=== PATIENT | female | born 1990 ===

== ENCOUNTER 2018-03-18 19:19 | Emergency (ER) | payer SELFPAY ==
[~2018-03-18] VITALS: Ht 152.4 cm; Wt 45.4 kg
--- OUTSIDE RECORDS SUMMARY | 2018-03-18 19:24 | XMS REPORT ---
Author Author JOSE MARIA Starr [facility] Address Unknown Care Team Providers Care Customs Entry Clerk Name Role Phone JOSE MARIA Starr Unavailable PROBLEMS Type Condition ICD9-CM Code [id number] Code Onset Dates Condition Status SNOMED Code Problem Dysmenorrhea N94.6 Active 375535600 Problem Endometrial thickening on ultra sound R93.8 Active 720092022 Problem Dysuria R30.0 Active 71087868 Problem Vaginal discharge N89.8 Active 530961804 Problem Routine health maintenance Z00.00 Active 761202887 Problem Hemoptysis R04.2 Active 05004608 ALLERGIES Substance Reaction Event Type Date Status N.K.D.A. Unknown Non Drug Allergy Aug, Unknown SOCIAL HISTORY No smoking Hx information available PLAN OF CARE Activity Details Follow Up 1 Week Reason:TE VITAL SIGNS Height 59 in 2016-08-25 Blood pressure systolic 102 mmHg 2016-08-25 Blood pressure diastolic 57 mmHg 2016-08-25 MEDICATIONS Medication Instructions Dosage Frequency Start Date End Date Duration Status Amoxicillin 500 MG Orally 4 times a day 1 capsule 6h Aug, Aug, 7 days Active [place] 5-325 MG Orally every 6 hrs 1 tablet as needed 6h Aug,Aug 4 days Active RESULTS No Results PROCEDURES Procedure Date Ordered Related Diagnosis Body Site LTD ORAL EVALUATION - PROBLEM FOCUS Aug 25, 2016 PANORAMIC FILM SEE ALSO CODE 90815 Aug 25, 2016 IMMUNIZATIONS No Known Immunizations
--- OUTSIDE RECORDS SUMMARY | 2018-03-18 19:24 | XMS REPORT ---
Author Author EBRT BRYAN Organization [facility] Address [address] [place] [address] Care Team Providers Care Client Care Consultant Name Role Phone BRYAN NOEL Unavailable PROBLEMS Type Condition ICD9-CM Code [id number] Code Onset Dates Condition Status SNOMED Code Assessment Pelvic pain R10.2 Apr, Active 97990264 Problem Routine health maintenance Z00.00 Active 175957701 Problem Dysuria R30.0 Active 98988087 Assessment Routine health maintenance Z00.00 Apr, Active 082235737 Assessment Screening for tuberculosis Z11.1 Apr, Active 176489202 Problem Vaginal discharge N89.8 Active 317162701 Problem Hemoptysis R04.2 Active 06782715 ALLERGIES Substance Reaction Event Type Date Status N.K.D.A. Unknown Non Drug Allergy Apr, Unknown SOCIAL HISTORY No smoking Hx information available PLAN OF CARE VITAL SIGNS Height 59 in 2016-04-29 Weight 106.7 lbs 2016-04-29 Heart Rate 68 bpm 2016-04-29 Respiratory Rate 18 2016-04-29 BMI 21.55 kg/m2 2016-04-29 Blood pressure systolic 104 mmHg 2016-04-29 Blood pressure diastolic 68 mmHg 2016-04-29 MEDICATIONS Medication Instructions Dosage Frequency Start Date End Date Duration Status Azithromycin 250 MG Orally Once a day 2 tablets on the first day, then 1 tablet daily for 4 days 24h Apr, Apr, 5 day(s) Active RESULTS Name Result Date Reference Range THYROID ANALYZER 2016-04-29 TSH 6.130 0.450-4.500 T4,Free (Direct) 1.26 0.82-1.77 Thyroid Peroxidase (TPO) Ab 17 0-34 Interpretive Comment A1C 2016-04-29 Hemoglobin A1c 5.5 4.8-5.6 CBC 2016-04-29 WBC 7.1 3.4-10.8 RBC 4.40 3.77-5.28 Hemoglobin 12.3 11.1-15.9 Hematocrit 38.1 34.0-46.6 MCV 87 79-97 MCH 28.0 26.6-33.0 MCHC 32.3 31.5-35.7 RDW 13.2 12.3-15.4 Platelets 263 150-379 Neutrophils 43 Lymphs 41 Monocytes 8 Eos 8 Basos 0 Neutrophils (Absolute) 3.0 1.4-7.0 Lymphs (Absolute) 2.9 0.7-3.1 Monocytes(Absolute) 0.6 0.1-0.9 Eos (Absolute) 0.6 0.0-0.4 Baso (Absolute) 0.0 0.0-0.2 Immature Granulocytes 0 Immature Grans (Abs) 0.0 0.0-0.1 CULTURE, GENITAL 2016-04-29 Genital Culture, Routine Final report Result 1 CULTURE, URINE 2016-04-29 Urine Culture, Routine Final report Result 1 LIPID PANEL 2016-04-29 Cholesterol, Total 163 100-199 Triglycerides 70 0-149 HDL Cholesterol 43 >39 VLDL Cholesterol [place] 14 5-40 LDL Cholesterol Calc 106 0-99 CMP 2016-04-29 Glucose, Serum 84 65-99 BUN 8 6-20 Creatinine, Serum 0.72 0.57-1.00 eGFR If NonAfricn Am 115 >59 eGFR If Africn Am 133 >59 BUN/Creatinine Ratio 11 8-20 Sodium, Serum 139 134-144 Potassium, Serum 3.8 3.5-5.2 Chloride, Serum 100 97-108 Carbon Dioxide, Total 21 18-29 Calcium, Serum 9.4 8.7-10.2 Protein, Total, Serum 7.5 6.0-8.5 Albumin, Serum 4.4 3.5-5.5 Globulin, Total 3.1 1.5-4.5 A/G Ratio 1.4 1.1-2.5 Bilirubin, Total 0.6 0.0-1.2 Alkaline Phosphatase, S 101 39-117 AST (SGOT) 28 0-40 ALT (SGPT) 20 0-32 TEST, URINE (IN HOUSE) 2016-04-29 RESULTS negative Lot # [id number] Control + Exp date TRICHOMONAS (IN HOUSE) 2016-04-29 TRICHOMONAS negative Control + Lot # [id number] Exp date 04/2017 UA W/CULTURE IF INDICATED (IN HOUSE) 2016-04-29 Lot # [id number] Exp date 2016-12 Clarity slightly cloudy Color dark yellow Odor n/a GLU negative ASIF negative KET negative SG >=1.030 BLO 3+ pH 5.5 Protein trace URO 0.2 NIT negative JANETTE trace Lot # Exp date BACTERIAL VAGINOSIS (IN HOUSE) 2016-04-29 RESULTS negative Control + Lot # [id number] Exp date GC/CHLAM PROBE (STATE) 2016-04-29 CHLAMYDIA GC Ultrasound : Pelvic, COMPLETE (REFLEX CPT-22578) 2016-05-20 Xray : Chest (IN HOUSE) 2016-05-29 PROCEDURES Procedure Date Ordered Related Diagnosis Body Site GLYCATED HEMOGLOBIN TEST Apr 29, 2016 COMPLETE CBC W/AUTO DIFF WBC Apr 29, 2016 COMPREHEN METABOLIC PANEL Apr 29, 2016 CULTURE, BACTERIA, OTHER Apr 29, 2016 No Charge Apr 29, 2016 MCDANIELS VAG, DNA, DIR PROBE Apr 29, 2016 TRICHOMONAS ASSAY W/OPTIC Apr 29, 2016 LIPID PANEL Apr 29, 2016 ASSAY THYROID STIM HORMONE Apr 29, 2016 URINALYSIS, AUTO, W/O SCOPE Apr 29, 2016 CHEST X-RAY Apr 29, 2016 URINE TEST Apr 29, 2016 URINE CULTURE/COLONY COUNT Apr 29, 2016 TB INTRADERMAL TEST Apr 29, 2016 VENIPUNCT, ROUTINE* Apr 29, 2016 Office Visit, Est Pt., Level 4 Apr 29, 2016 IMMUNIZATIONS No Known Immunizations
--- OUTSIDE RECORDS SUMMARY | 2018-03-18 19:24 | XMS REPORT ---
Author Author MARYANNE SAINZ [facility] eClinical[employer] Address Unknown Phone Unavailable Care Team Providers Care Agent Contract Clerk Name Role Phone MARYANNE SAINZ CP Unavailable Allergies, Adverse Reactions, Alerts Substance Reaction Event Type N.K.D.A. Info Not Available Non Drug Allergy Problems Problem Type Condition Code Onset Dates Condition Status Assessment Vaginal discharge N89.8 Active Assessment Cervical motion tenderness N94.9 Active Assessment Dysuria R30.0 Active Medications Medication Code System Code Instructions Start Date End Date Status Dosage Doxycycline Hyclate [facility] [address]-55 100 MG Orally every 12 hrs Apr 15, 2016 Apr 22, 2016 1 capsule Procedures Procedure Coding System Code Date TRICHOMONAS ASSAY W/OPTIC CPT-4 09331 Apr 15, 2016 No Charge CPT-4 01721 Apr 15, 2016 URINALYSIS, AUTO, W/O SCOPE CPT-4 20869 Apr 15, 2016 URINALYSIS, AUTO W/SCOPE CPT-4 02109 Apr 15, 2016 CULTURE, BACTERIA, OTHER CPT-4 86737 Apr 15, 2016 MCDANIELS VAG, DNA, DIR PROBE CPT-4 24911 Apr 15, 2016 SPECIMEN HANDLING CPT-4 17887 Apr 15, 2016 Office Visit, New Pt., Level 3 CPT-4 20471 Apr 15, 2016 Vital Signs Date/Time: Apr 15, 2016 Cardiac Monitoring Heart Rate 60 bpm Weight 109.2 lbs Height 59 in BMI 22.05 Index Blood Pressure Diastolic 70 mmHg Blood Pressure Systolic 96 mmHg Results No Known Results Summary Purpose eClinicalWorks Submission
--- OUTSIDE RECORDS SUMMARY | 2018-03-18 19:24 | XMS REPORT ---
Author JEROD Dawkins [facility] e[employer] Address Unknown Phone Unavailable Care Team Providers Care Nozzle Cement Sprayer Helper Name Role Phone JEROD REN CP Unavailable Allergies, Adverse Reactions, Alerts Substance Reaction Event Type N.K.D.A. Info Not Available Non Drug Allergy Problems Problem Type Condition Code Onset Dates Condition Status Assessment Endometrial thickening on ultra sound R93.8 Active Problem Endometrial thickening on ultra sound R93.8 Active Problem Routine health maintenance Z00.00 Active Problem Dysmenorrhea N94.6 Active Problem Hemoptysis R04.2 Active Assessment Dysmenorrhea N94.6 Active Problem Dysuria R30.0 Active Problem Vaginal discharge N89.8 Active Medications Medication Code System Code Instructions Start Date End Date Status Dosage Ortho-Cyclen (28) [facility] [address]-04 0.25-35 MG-MCG Orally Once a day May 1 tablet Procedures Procedure Coding System Code Date Office Visit, Est Pt., Level 4 CPT-4 39045 Jun 02, 2016 URINE TEST CPT-4 21122 Jun 02, 2016 Vital Signs Date/Time: Jun 02, 2016 Cardiac Monitoring Heart Rate 88 bpm Weight 106.0 lbs Height 59 in BMI 21.41 Index Blood Pressure Diastolic 60 mmHg Blood Pressure Systolic 100 mmHg Results No Known Results Summary Purpose eClinicalWorks Submission
--- OUTSIDE RECORDS SUMMARY | 2018-03-18 19:24 | XMS REPORT ---
Author Author BRYAN NOEL Organization [facility] Address [address] [place] [address] Care Team Providers Care Energy Director Name Role Phone BRYAN NOEL Unavailable PROBLEMS Type Condition ICD9-CM Code [id number] Code Onset Dates Condition Status SNOMED Code Problem Routine health maintenance Z00.00 Active 306854697 Problem Dysuria R30.0 Active 89995925 Assessment Abnormal TSH R79.89 08 Apr, 2016 Active 196191725 Problem Vaginal discharge N89.8 Active 967870863 Problem Hemoptysis R04.2 Active 64548681 ALLERGIES No Known Allergies SOCIAL HISTORY No smoking Hx information available PLAN OF CARE VITAL SIGNS MEDICATIONS No Known Medications RESULTS No Results PROCEDURES No Known procedures IMMUNIZATIONS No Known Immunizations
--- NOTE | 2018-03-18 20:23 | ED General ---
General Chief Complaint: General Problems/Pain Stated Complaint: NAUSEA;DIZZINESS;FACE NUMBNESS Nursing Triage Note: PATIENT HERE FOR COMPLAINTS OF SUDDEN HEADACHE, NAUSEA, LIGHHEADEDNESS AND RIGHT SIDED FACIAL NUMBNESS TODAY AROUND 4PM. SHE STATES THAT SHE HAD THIS SAME THING 3 MONTHS AGO AND WAS SEEN AT [facility] FOR IT AND THEY "SAID IT WAS NOTHING." TODAY SHE TOOK SOME TYLENOL AND RESTED FOR A WHILE AND THIS HELPED BUT SHE SAYS IT IS NOT COMPLETELY BETTER. Nursing Sepsis Screen: No Definite Risk History of Present Illness Date Seen by Provider: Mar 18, 2018 Time Seen by Provider: 19:45 Initial Comments 27-year-old female presents for right-sided facial numbness associated with headaches. She reports her symptoms occurred one other time approximately 2 -3 weeks ago. Today when it began she took Tylenol and laid down, her symptoms then improved. She has no history of migraines or other neurological problems. She's had no previous eye exam. She does not take any medications routinely and denies any allergies. She is sexually active and only takes her control after intercourse, patient education provided that she needs to take this on a daily basis as prescribed. Urine hCG negative. Timing/Duration: 1-3 Hours Severity: Mild Associated Systoms: Denies Symptoms Allergies and Home Medications Patient Home Medication List Home Medication List Reviewed: Yes Review of Systems Constitutional: no symptoms reported, see HPI Psychiatric/Neurological: See HPI, Headache, Numbness All Other Systems Reviewed Negative Unless Noted: Yes Past Zhokgcj-Hsnvlk-Jkjivg Hx Past Med/Social Hx: Reviewed Nursing Past Med/Soc Hx Patient Social History Alcohol Use: Denies Use Recreational Drug Use: No Smoking Status: Never a Smoker 2nd Hand Smoke Exposure: No Recent Foreign Travel: No Contact w/Someone Who Travel: No Recent Infectious Disease Expo: No Recent Hopitalizations: No Physical Abuse: No Sexual Abuse: No Seasonal Allergies Seasonal Allergies: No Past Medical History Surgeries: No Respiratory: No Cardiac: No Neurological: No Last Menstrual Period: Mar 08, 2018 Genitourinary: No Gastrointestinal: No Musculoskeletal: No Endocrine: No HEENT: No Cancer: No Psychosocial: No Nursing Suicide Risk Score: 0 Integumentary: No Blood Disorders: No Physical Exam Vital Signs Vital Signs - First Documented 03/18/18 19:38 Temp 96.9 Pulse 82 Resp 18 B/P (MAP) 128/84 (99) Pulse Ox 100 Capillary Refill : Less Than 3 Seconds Height, Weight, BMI Height: 5'0" Weight: 100lbs. 0oz. 45.721141rm; BMI Method:Stated General Appearance: No Apparent Distress, WD/WN Eyes: Bilateral Eye Normal Inspection, Bilateral Eye PERRL, Bilateral Eye EOMI HEENT: PERRL/EOMI, TMs Normal, Normal ENT Inspection, Pharynx Normal Neck: Full Range of Motion, Normal Inspection, Non Tender, Supple Respiratory: Chest Non Tender, Lungs Clear, Normal Breath Sounds Cardiovascular: Regular Rate, Rhythm, Normal Peripheral Pulses Gastrointestinal: Normal Bowel Sounds, Non Tender, Soft Extremity: Normal Capillary Refill, Normal Inspection, Normal Range of Motion, Non Tender, No Pedal Edema Neurologic/Psychiatric: Alert, Oriented x3, No Motor/Sensory Deficits, Normal Mood/Affect, litigation associate II-XII Norm as Tested (grossly intact) Skin: Normal Color, Warm/Dry Progress/Results/Core Measures Suspected Sepsis Recent Fever Within 48 Hours: No Infection Criteria Present: None New/Unexplained Altered Menta: No Sepsis Screen: No Definite Risk SIRS Temperature:96.9 Pulse: 82 Respiratory Rate: 18 Blood Pressure 128 /84 Mean: 99 Results/Orders Vital Signs/I&O 03/18/18 03/18/18 19:38 20:26 Temp 96.9 96.9 Pulse 82 82 Resp 18 18 B/P (MAP) 128/84 (99) 128/84 (99) Pulse Ox 100 100 Capillary Refill : Less Than 3 Seconds Blood Pressure Mean: 99 Departure Impression Primary Impression: Cluster headache Qualified Codes: G44.011 - Episodic cluster headache, intractable Disposition: 01 HOME, SELF-CARE Condition: Stable Departure-Patient Inst. Decision time for Depature: 20:15 Referrals: JEROD REN DO (PCP) Primary Care Physician BRYAN NOEL APRN (Family) Primary Care Physician Patient Instructions: Cluster Headache (DC) Add. Discharge Instructions: Take Excedrin Migraine at immediate onset of headache, with full glass of water and rest. Schedule appt with eye doctor for vision exam. Start taking a daily women's multi-vitamin. Take your control, every day, at the same time. Follow up with [facility] for continued symptoms or worsening. Return to Emergency Dept for new problems or concerns. All discharge instructions reviewed with patient and/or family. Voiced understanding. DAI PAREDES 26, 2018 20:23
[2018-03-18 20:26] VITALS: BP 128/84
== END 2018-03-18 20:35 | disposition home or self-care (01) ==
LOC: EDUNIT# 19:19 → ER 19:21
DX: G44.011 Episodic cluster headache, intractable (principal)
CPT/HCPCS: 99281

== ENCOUNTER → 2018-05-10 | Outpatient (CLI) | payer SELFPAY ==
[~2018-05-10] MED LIST: CATHETER FLUSH 10 ML SYR IV PRN; IOHEXOL 350 MG/ML 100 ML (OMNIPAQUE 350) VIAL IV ONE; NS 250 ML (IVPB) BAG IV ONE; RECEIVED CONTRAST (Hold Metformin) IV SCH
--- NOTE | 2018-05-10 10:55 | Diagnostic Imaging Report ---
PROCEDURE: CT abdomen and pelvis with contrast. TECHNIQUE: Multiple contiguous axial images were obtained through the abdomen and pelvis after administration of intravenous contrast. INDICATION: Abdominal pain. COMPARISON: None. FINDINGS: Included portions of lung bases are clear. CT abdomen: Normal appendix is identified. Small bowel loops are nondistended. There is large amount of air and stool scattered throughout the colon. The kidneys, adrenal glands, spleen, pancreas, and liver have a normal CT appearance. There is no loculated fluid collection, free fluid, nor free air within the abdomen. No abnormal mesenteric or retroperitoneal adenopathy is seen. Bony structures show no acute abnormalities. CT Pelvis: Urinary bladder is unopacified. No calculi are seen within urinary bladder. There is no loculated fluid collection, free fluid, nor free air within the pelvis. No abnormal lymph nodes are identified. Bony structures show no acute abnormalities. IMPRESSION: 1. No acute abnormalities are seen within the abdomen or pelvis. 2. Moderate amount of colonic air and stool. Please correlate for constipation. Dictated by: Dictated on workstation # [id number]
--- NOTE | 2018-05-10 11:07 | Diagnostic Imaging Report ---
PROCEDURE: US Gallbladder. TECHNIQUE: Multiple real-time grayscale images were obtained over the right upper quadrant in various projections. INDICATION: Right upper quadrant pain. FINDINGS: Liver is normal in size at 12.2 cm. No discrete liver mass is identified. Main portal vein is patent and shows normal direction of flow. The gallbladder is without stones or sludge. No wall thickening or biliary ductal dilatation is seen. The visualized pancreas is unremarkable. Right kidney is unremarkable. No calculi or hydronephrosis is seen. There is no ascites. IMPRESSION: Unremarkable gallbladder ultrasound. Dictated by: Dictated on workstation # [id number]
== END ==
LOC: RAD 09:14
PROVIDERS: ATTEND Nurse Practitioner Family
DX: R10.11 Right upper quadrant pain (principal)
CPT/HCPCS: 74177; 76705